=== PATIENT | female | born 1960 | race Caucasian/White ===

== ENCOUNTER → 2016-10-26 | Outpatient (CLI) | payer MEDICARE | LOC: OPSV 09:00 → CT 11:30 | DX: C34.11 Malignant neoplasm of upper lobe, right bronchus or lung (principal); C77.1 Secondary and unspecified malignant neoplasm of intrathoracic lymph nodes; R10.84 Generalized abdominal pain; R06.02 Shortness of breath; J84.9 Interstitial pulmonary disease, unspecified; Z90.710 Acquired absence of both cervix and uterus | CPT/HCPCS: 71260; 96360; 96361; J1642; J7030; J7050; Q9962 ==